=== PATIENT | male | born 1950 | race Caucasian/White ===

== ENCOUNTER 2025-08-21 09:58 | Day surgery (SDC) | payer MEDICARE, BC, SELFPAY ==
[2025-08-21] MEDS: ELIQUIS 5 MG PO (10:34)
--- NOTE | 2025-08-21 10:58 | ITS.CL.CARDI ---
[employer] - Cardioversion
Cardioversion
Procedure Report:
Sedation: per anesthesia
Procedure: Successful synchronized biphasic cardioversion with 200 Joules to NSR.
Patient was positively identified, and procedure time was taken. Informed consent obtained. Correct patient position. Relevant images and results reviewed prior to procedure. Patient history and medications reviewed. Agreement to proceed.
Pre-op Diagnosis: afib
Post-op Diagnosis: Same
Patient was taken to the recovery area in stable condition. No complications
== END 2025-08-21 11:28 | disposition home or self-care (01) ==
LOC: CATH 09:58
PROVIDERS: ATTENDING PHYSICIAN Internal Medicine Interventional Cardiology; OTHER PHYSICIAN Internal Medicine Cardiovascular Disease; PRIMARYCARE PHYSICIAN Family Medicine
DX: I48.91 Unspecified atrial fibrillation (principal); I48.92 Unspecified atrial flutter; E78.00 Pure hypercholesterolemia, unspecified; G25.81 Restless legs syndrome
CPT/HCPCS: 92960; 93005